=== PATIENT | male | born 1990 | race African-American/Black ===

== ENCOUNTER 2018-03-31 16:29 | Emergency (ER) | payer SELFPAY ==
[~2018-03-31] VITALS: Ht 177.8 cm; Wt 77.0 kg
[2018-03-31] MEDS ORDERED: ONDANSETRON HCL 4MG/2ML VIAL IV STA (17:46)
[2018-03-31] MEDS ORDERED: SODIUM CHLORIDE 0.9% 1,000 ML IV ONE (17:46)
[2018-03-31] MEDS ORDERED: KETOROLAC 30MG/ML VIAL IV STA (17:46)
[2018-03-31] MEDS ORDERED: MORPHINE SULFATE 4 MG/ML CPJ (NOT FOR IM USE) IV STA (17:46)
[2018-03-31 18:06] LABS: BASOPHILS % 0.5 % (0.0-2.0); EOSINOPHILS % 0.8 % (0.0-5.0); HEMATOCRIT. 43.8 % (42.0-52.0); HEMOGLOBIN. 15.3 g/dL (14.0-18.0); LYMPHOCYTES % 26.3 % (20.0-50.0); MEAN CORPUSCULAR VOLUME 88.9 fL (80.0-94.0); MEAN PLATELET VOLUME 7.1 fl (7.4-10.4); MONOCYTES % 9.6 % (2.0-8.0); NEUTROPHILS % 62.8 % (40.0-76.0); PLATELET 297 x1000/uL (130-400); RED BLOOD CELL COUNT 4.93 mill/uL (4.7-6.1); RED CELL DISTRIBUTION WIDTH 12.6 % (11.6-14.6)
[2018-03-31 18:09] LABS: CHLORIDE 102 mEq/L (98-107)
[2018-03-31 18:10] LABS: INR 1.3; PROTHROMBIN TIME 13.2 sec (9.4-11.6)
[2018-03-31 18:13] LABS: ETHANOL BLOOD < 10 mg/dL
[2018-03-31 19:05] LABS: CLARITY URINE CLEAR (CLEAR); COLOR URINE YELLOW (YELLOW); KETONES URINE TRACE (NEGATIVE); LEUKOCYTE ESTERASE URINE TRACE (NEGATIVE); NITRITE URINE NEGATIVE (NEGATIVE); OCCULT BLOOD URINE 2+ (NEGATIVE); PH URINE 5.5 (4.5-8.0); PROTEIN URINE NEGATIVE (NEGATIVE); SPECIFIC GRAVITY URINE 1.023 (1.005-1.030)
[2018-03-31 19:15] LABS: *AMPHETAMINES SCREEN URINE PRESUMTIVE POSITIVE (NEGATIVE); *BARBITURATES SCREEN URINE NEGATIVE (NEGATIVE); *BENZODIAZEPINES SCREEN URINE NEGATIVE (NEGATIVE); *COCAINE SCREEN URINE NEGATIVE (NEGATIVE)
[2018-03-31 19:17] LABS: CANNABINOID URINE SCREEN PRESUMTIVE POSITIVE (NEGATIVE); METHADONE URINE SCREEN NEGATIVE (NEGATIVE); OPIATES URINE SCREEN NEGATIVE (NEGATIVE); PHENCYCLIDINE URINE SCREEN NEGATIVE (NEGATIVE)
[2018-03-31] MEDS ORDERED: HYDROCODONE/ACETAMINOPHEN 5/325MG TABLET PO ONE (21:00)
[2018-03-31 21:19] VITALS: BP 136/70
== END 2018-03-31 21:21 | disposition home or self-care (01) ==
LOC: ER 18:33
DX: N20.2 Calculus of kidney with calculus of ureter (principal); I10 Essential (primary) hypertension
CPT/HCPCS: 36415; 74176; 80053; 80305; 81003; 83690; 85025; 85610; 87086; 96361; 96374; 96375; 99285; G0482; J1885; J2270; J2405; J7030

== ENCOUNTER 2018-04-01 14:33 | Inpatient (IN) | payer MEDICAID ==
[~2018-04-01] VITALS: Ht 175.3 cm; Wt 77.1 kg
[2018-04-01] MEDS ORDERED: ONDANSETRON HCL 4MG/2ML VIAL IV ONE ×2 (15:00→16:30)
[2018-04-01] MEDS ORDERED: MORPHINE SULFATE 4 MG/ML CPJ (NOT FOR IM USE) IV ONE ×3 (15:00→20:00)
[2018-04-01] MEDS ORDERED: KETOROLAC 30MG/ML VIAL IV ONE (16:00)
[2018-04-01] MEDS ORDERED: SODIUM CHLORIDE 0.9% 1,000 ML IV ONE ×2 (16:00→16:30)
[2018-04-01 16:13] LABS: CLARITY URINE CLOUDY (CLEAR); COLOR URINE ORANGE (YELLOW); KETONES URINE NEGATIVE (NEGATIVE); LEUKOCYTE ESTERASE URINE 1+ (NEGATIVE); NITRITE URINE NEGATIVE (NEGATIVE); OCCULT BLOOD URINE 3+ (NEGATIVE); PROTEIN URINE 2+ (NEGATIVE); SPECIFIC GRAVITY URINE 1.023 (1.005-1.030); UROBILINOGEN URINE 0.2 E.U./dL (0.2-1.0)
[2018-04-01] MEDS ORDERED: TAMSULOSIN HCL 0.4MG SR CAPSULE PO ONE (16:30)
[2018-04-01 16:46] LABS: CHLORIDE 103 mEq/L (98-107)
[2018-04-01 16:48] LABS: BASOPHILS % 0.2 % (0.0-2.0); EOSINOPHILS % 1.4 % (0.0-5.0); HEMATOCRIT. 45.5 % (42.0-52.0); HEMOGLOBIN. 15.9 g/dL (14.0-18.0); LYMPHOCYTES % 32.4 % (20.0-50.0); MEAN CORPUSCULAR HEMOGLOBIN 31.6 pg (28.0-32.0); MEAN CORPUSCULAR VOLUME 90.5 fL (80.0-94.0); MEAN PLATELET VOLUME 7.5 fl (7.4-10.4); MONOCYTES % 8.5 % (2.0-8.0); NEUTROPHILS % 57.5 % (40.0-76.0); PLATELET 306 x1000/uL (130-400); RED BLOOD CELL COUNT 5.03 mill/uL (4.7-6.1); RED CELL DISTRIBUTION WIDTH 12.7 % (11.6-14.6)
[2018-04-01 17:21] LABS: INR 1.3; PROTHROMBIN TIME 13.6 sec (9.4-11.6)
[2018-04-01] MEDS ORDERED: CEFTRIAXONE 1 G PREMIX 50 ML IV ONE (20:00)
[2018-04-01] MEDS ORDERED: DIPHENHYDRAMINE 50MG/ML VIAL IV PRN (22:00)
[2018-04-01] MEDS ORDERED: LORAZEPAM 2MG/ML CPJ IV PRN (22:00)
[2018-04-01] MEDS ORDERED: DOCUSATE SODIUM 100MG CAPSULE PO PRN (22:00)
[2018-04-01] MEDS ORDERED: NA PHOS,M-B/NA PHOS,DI-BA ENEMA 118ML PR PRN (22:00)
[2018-04-01] MEDS ORDERED: GUAIFENESIN 200MG/10ML SUGAR FREE UDC PO PRN (22:00)
[2018-04-01] MEDS ORDERED: ACETAMINOPHEN 325MG TABLET PO PRN (22:00)
[2018-04-01] MEDS ORDERED: MAGNESIUM/ALUMINUM HYDROXIDE/SIMETHICONE 30ML UDC PO PRN (22:00)
[2018-04-01] MEDS ORDERED: IPRATROPIUM/ALBUTEROL 0.5-3(2.5)MG/3ML NEB INH PRN (22:00)
[2018-04-01] MEDS ORDERED: CLONIDINE 0.1MG TABLET PO PRN (22:00)
[2018-04-01 22:35] VITALS: BP 144/89
[2018-04-01] MEDS: ONDANSETRON HCL 4MG/2ML VIAL IV PRN (23:00)
[2018-04-01] MEDS: ENOXAPARIN 40MG/0.4ML SYR SUBCUT SCH (23:02)
[2018-04-01] MEDS: MORPHINE SULFATE 4 MG/ML CPJ (NOT FOR IM USE) IV PRN (23:03)
[2018-04-01] MEDS: SODIUM CHLORIDE 0.45% 1,000 ML IV SCH (23:12)
[2018-04-01 23:27] LABS: CHLORIDE 107 mEq/L (98-107)
[2018-04-02] VITALS (7 sets, daily range): BP systolic 108–144; BP diastolic 60–91
[2018-04-02] MEDS ORDERED: LEVOFLOXACIN 500MG PREMIX 100 ML IV SCH
[2018-04-02] MEDS: ONDANSETRON HCL 4MG/2ML VIAL IV PRN ×2 (06:02→12:32)
[2018-04-02] MEDS: MORPHINE SULFATE 4 MG/ML CPJ (NOT FOR IM USE) IV PRN ×4 (06:03→23:14)
[2018-04-02 06:15] LABS: BASOPHILS % 0.3 % (0.0-2.0); EOSINOPHILS % 1.2 % (0.0-5.0); HEMATOCRIT. 39.7 % (42.0-52.0); HEMOGLOBIN. 13.7 g/dL (14.0-18.0); LYMPHOCYTES % 34.9 % (20.0-50.0); MEAN CORPUSCULAR HEMOGLOBIN 31.3 pg (28.0-32.0); MEAN CORPUSCULAR VOLUME 90.3 fL (80.0-94.0); MEAN PLATELET VOLUME 7.9 fl (7.4-10.4); MONOCYTES % 8.6 % (2.0-8.0); PLATELET 222 x1000/uL (130-400); RED BLOOD CELL COUNT 4.39 mill/uL (4.7-6.1); RED CELL DISTRIBUTION WIDTH 12.8 % (11.6-14.6)
[2018-04-02 06:29] LABS: CHLORIDE 104 mEq/L (98-107)
[2018-04-02] MEDS: SODIUM CHLORIDE 0.45% 1,000 ML IV SCH (12:33)
[2018-04-02] MEDS: HYDROCODONE/ACETAMINOPHEN 10/325MG TABLET PO PRN (20:09)
[2018-04-02] MEDS: ENOXAPARIN 40MG/0.4ML SYR SUBCUT SCH (23:00)
[2018-04-03 01:47] VITALS: BP 128/66
[2018-04-03] MEDS: LEVOFLOXACIN 500MG PREMIX 100 ML IV SCH (02:01)
[2018-04-03] MEDS: MORPHINE SULFATE 4 MG/ML CPJ (NOT FOR IM USE) IV PRN ×4 (03:14→22:41)
[2018-04-03] MEDS: HYDROCODONE/ACETAMINOPHEN 10/325MG TABLET PO PRN ×4 (03:26→21:22)
[2018-04-03 04:00] VITALS: BP 127/65
[2018-04-03 05:08] VITALS: BP 127/64
[2018-04-03 08:00] VITALS: BP 121/52
[2018-04-03] MEDS ORDERED: IODIXANOL 320MG/ML 200ML BOTTLE ONE (11:23)
[2018-04-03] MEDS ORDERED: ROCURONIUM BROMIDE 10MG/ML VIAL 5ML IV ONE (11:36)
[2018-04-03] MEDS ORDERED: NEOSTIGMINE METHYLSULFATE 1MG/ML 10 ML VIAL ONE (11:36)
[2018-04-03] MEDS ORDERED: FENTANYL CITRATE/PF 50MCG/ML 2ML VIAL ONE (11:36)
[2018-04-03] MEDS ORDERED: SUCCINYLCHOLINE CHLORIDE 200MG/10ML VIAL IV ONE (11:37)
[2018-04-03] MEDS ORDERED: ONDANSETRON HCL 4MG/2ML VIAL ONE (11:37)
[2018-04-03] MEDS ORDERED: MIDAZOLAM HCL 2 MG/2 ML VIAL ONE (11:37)
[2018-04-03] MEDS ORDERED: GLYCOPYRROLATE 0.2 MG/ML 2ML VIAL ONE (11:37)
[2018-04-03] MEDS ORDERED: PROPOFOL 200MG/20ML VIAL IV ONE (11:37)
[2018-04-03] MEDS ORDERED: CEFAZOLIN SODIUM 1000MG/VIAL ONE (11:37)
[2018-04-03] MEDS ORDERED: KETOROLAC 30MG/ML VIAL ONE (12:27)
[2018-04-03] MEDS ORDERED: MEPERIDINE HCL/PF 25MG/ML CPJ IV PRN ×2 (12:45)
[2018-04-03] MEDS ORDERED: ONDANSETRON HCL 4MG/2ML VIAL IV PRN (12:45)
[2018-04-03] MEDS ORDERED: SODIUM CHLORIDE 0.9% 1,000 ML IV ONE (12:45)
[2018-04-03] MEDS ORDERED: MORPHINE SULFATE 4 MG/ML CPJ (NOT FOR IM USE) IV PRN (12:45)
[2018-04-03] MEDS: HYDROMORPHONE HCL/PF 2MG/ML CPJ IV PRN ×3 (12:57→13:53)
[2018-04-03] MEDS: ONDANSETRON HCL 4MG/2ML VIAL IV PRN (15:15)
[2018-04-03 16:00] VITALS: BP 112/51
[2018-04-03 20:00] VITALS: BP 125/75
[2018-04-03] MEDS: ENOXAPARIN 40MG/0.4ML SYR SUBCUT SCH (22:34)
[2018-04-04] VITALS: BP 133/77
[2018-04-04] MEDS: LEVOFLOXACIN 500MG PREMIX 100 ML IV SCH (01:15)
[2018-04-04] MEDS: HYDROCODONE/ACETAMINOPHEN 10/325MG TABLET PO PRN ×2 (01:22→17:20)
[2018-04-04 04:00] VITALS: BP 141/80
[2018-04-04] MEDS: MORPHINE SULFATE 4 MG/ML CPJ (NOT FOR IM USE) IV PRN ×3 (06:02→23:07)
[2018-04-04] MEDS: ONDANSETRON HCL 4MG/2ML VIAL IV PRN ×3 (06:55→23:06)
[2018-04-04 07:12] LABS: BASOPHILS % 0.3 % (0.0-2.0); EOSINOPHILS % 0.8 % (0.0-5.0); HEMOGLOBIN. 15.1 g/dL (14.0-18.0); LYMPHOCYTES % 41.7 % (20.0-50.0); MEAN CORPUSCULAR HEMOGLOBIN 31.2 pg (28.0-32.0); MEAN CORPUSCULAR VOLUME 89.1 fL (80.0-94.0); MEAN PLATELET VOLUME 7.6 fl (7.4-10.4); MONOCYTES % 10.6 % (2.0-8.0); NEUTROPHILS % 46.6 % (40.0-76.0); PLATELET 265 x1000/uL (130-400); RED BLOOD CELL COUNT 4.82 mill/uL (4.7-6.1); RED CELL DISTRIBUTION WIDTH 12.5 % (11.6-14.6)
[2018-04-04 07:35] LABS: CHLORIDE 105 mEq/L (98-107)
[2018-04-04] MEDS: SODIUM CHLORIDE 0.45% 1,000 ML IV SCH ×2 (07:45→21:43)
[2018-04-04 07:56] VITALS: BP 135/77
[2018-04-04] MEDS: KETOROLAC 30MG/ML VIAL IV SCH ×3 (08:59→20:26)
[2018-04-04 12:00] VITALS: BP 136/77
[2018-04-04 16:05] VITALS: BP 151/79
[2018-04-04 20:00] VITALS: BP 139/66
[2018-04-04] MEDS: ENOXAPARIN 40MG/0.4ML SYR SUBCUT SCH (23:21)
[2018-04-05] MEDS: KETOROLAC 30MG/ML VIAL IV SCH ×2 (02:27→08:15)
[2018-04-05] MEDS: LEVOFLOXACIN 500MG PREMIX 100 ML IV SCH (02:34)
[2018-04-05] MEDS: MORPHINE SULFATE 4 MG/ML CPJ (NOT FOR IM USE) IV PRN ×2 (03:32→09:11)
[2018-04-05 04:00] VITALS: BP 120/63
[2018-04-05 08:00] VITALS: BP 118/65
[2018-04-05] MEDS: SODIUM CHLORIDE 0.45% 1,000 ML IV SCH (09:15)
[2018-04-05 11:57] VITALS: BP 125/70
[2018-04-05 12:00] VITALS: BP 125/70
[2018-04-05 12:36] VITALS: BP 125/70
[2018-04-05] MEDS: HYDROCODONE/ACETAMINOPHEN 10/325MG TABLET PO PRN (12:36)
== END 2018-04-05 14:10 | disposition home or self-care (01) | DRG 465 ==
LOC: ER 14:33 → 8WST 20:05 → ENRESERV 21:08
PROVIDERS: ADMIT Internal Medicine; ATTEND Internal Medicine
PROC: 0TF68ZZ Fragmentation in Right Ureter, Via Natural or Artificial Opening Endoscopic (ICD-10-PCS; 2018-04-03)
PROC: 0TF78ZZ Fragmentation in Left Ureter, Via Natural or Artificial Opening Endoscopic (ICD-10-PCS; principal; 2018-04-03 11:00)
DX: N13.2 Hydronephrosis with renal and ureteral calculous obstruction (principal); N39.0 Urinary tract infection, site not specified; F12.90 Cannabis use, unspecified, uncomplicated; F17.200 Nicotine dependence, unspecified, uncomplicated; Z87.442 Personal history of urinary calculi; R31.9 Hematuria, unspecified
CPT/HCPCS: 36415; 74021; 76000; 80048; 80053; 81003; 85025; 85610; 87086; 96365; 96375; 96376; 99285; C1769; J0330; J0690; J0696; J1170; J1200; J1650; J1885; J1956; J2060; J2250; J2270; J2405; J2704; J2710; J3010; J3490; J7030; Q9967